=== PATIENT | male | born 1930 | race Caucasian/White ===

== ENCOUNTER → 2017-02-09 | Outpatient (CLI) | payer MEDICARE ==
--- NOTE | 2017-02-09 10:54 | XR ---
EXAMINATION TYPE: XR pelvis AP view DATE OF EXAM: 02/09/2017 10:33 AM CLINICAL HISTORY: pain TECHNIQUE: Single view the pelvis is submitted. FINDINGS: No evidence for fracture, dislocation or bony lesion. Joint spaces are well-preserved. S I joints appear symmetric. IMPRESSION: 1. No acute fracture or dislocation seen. ICD 10 NO FRACTURE, INITIAL EVALUATION
--- NOTE | 2017-02-09 10:56 | XR ---
EXAMINATION TYPE: XR thoracic spine 2V DATE OF EXAM: 02/09/2017 10:33 AM CLINICAL HISTORY: pain TECHNIQUE: Frontal, lateral, and swimmer's view of thoracic spine are obtained. COMPARISON: None. FINDINGS: Thoracic spine show satisfactory alignment without evidence of acute fracture or dislocatio n. There is a curvature noted convex to the right. Vertebral body heights are preserved. Mild degener ative disc space narrowing. Bridging anterior osteophytes may reflect diffuse idiopathic skeletal hyp erostosis or dish. Visualized ribs are unremarkable. IMPRESSION: No acute fracture or dislocation is seen in the thoracic spine. Degenerative change. Kaiden elate for DISH. ICD 10 NO FRACTURE, INITIAL EVALUATION
--- NOTE | 2017-02-09 10:57 | XR ---
EXAMINATION TYPE: XR cervical spine limited DATE OF EXAM: 02/09/2017 10:33 AM CLINICAL HISTORY: pain TECHNIQUE: 3 views of the cervical spine are submitted. COMPARISON: None. FINDINGS: There is satisfactory in alignment without evidence of acute fracture or dislocation. The pre-vertebral soft tissue appears within normal limits. Moderate to severe disc space narrowing. Lar ge anterior bridging osteophytes. Correlate for DISH. The C1-C2 articulation is unremarkable on the o pen mouth view. IMPRESSION: No acute fracture or dislocation is seen in the cervical spine. Degenerative changes as discussed.
== END ==
LOC: RADXRMAIN 09:53
PROVIDERS: ATTEND Chiropractor
DX: M47.814 Spondylosis without myelopathy or radiculopathy, thoracic region (principal); M47.812 Spondylosis without myelopathy or radiculopathy, cervical region; M53.1 Cervicobrachial syndrome
CPT/HCPCS: 72040; 72070; 72170

== ENCOUNTER 2017-06-08 06:23 | Emergency (ER) | payer MEDICARE ==
[2017-06-08] MEDS ORDERED: Acetaminophen-Codeine 300-30mg TAB PO STA (08:09)
[2017-06-08] MEDS ORDERED: KETOROLAC 60 MG/2 ML VIAL IM STA (08:09)
--- NOTE | 2017-06-08 08:21 | ED ---
General Adult HPI - General Chief complaint: Fall Stated complaint: Fall/Rib Pain Time Seen by Provider: 06/08/17 07:13 Source: patient, RN notes reviewed, old records reviewed Mode of arrival: ambulatory Limitations: no limitations - History of Present Illness Initial comments: This is a 86-year-old male to the ER status post fall. Patient a final 3 days ago. No loss of consciousness, not had a left-sided ribs, having left-sided rib pain pain worse with a deep breath worse with movement. No other complaints no other injuries. No improving factors for pain. Has not taken Motrin or Tylenol - Related Data Home Medications Medication Instructions Recorded Confirmed Aspirin [Adult Low Dose Aspirin EC] 81 mg PO DAILY 06/08/17 06/08/17 Glimepiride [Amaryl] 2 mg PO BID 06/08/17 06/08/17 Insulin Detemir [Levemir Flextouch] 8 - 10 units SQ HS 06/08/17 06/08/17 Quinapril HCl 10 mg PO DAILY 06/08/17 06/08/17 Simvastatin [Zocor] 20 mg PO HS 06/08/17 06/08/17 Allergies Allergy/AdvReac Type Severity Reaction Status Date / Time No Known Allergies Allergy Verified 06/08/17 07:40 Review of Systems ROS Statement: Those systems with pertinent positive or pertinent negative responses have been documented in the HPI. ROS Other: All systems not noted in ROS Statement are negative. Past Medical History Past Medical History: Diabetes Mellitus, Hyperlipidemia, Hypertension, Osteoarthritis (OA) History of Any Multi-Drug Resistant Organisms: None Reported Past Surgical History: No Surgical Hx Reported Smoking Status: Current some day smoker Past Alcohol Use History: Occasional Past Drug Use History: None Reported General Exam Limitations: no limitations General appearance: alert, in no apparent distress Head exam: Present: atraumatic, normocephalic, normal inspection Eye exam: Present: normal appearance, PERRL, EOMI. Absent: scleral icterus, conjunctival injection, periorbital swelling ENT exam: Present: normal exam, mucous membranes moist Neck exam: Present: normal inspection. Absent: tenderness, meningismus, lymphadenopathy Respiratory exam: Present: normal lung sounds bilaterally. Absent: respiratory distress, wheezes, rales, rhonchi, stridor Cardiovascular Exam: Present: regular rate, normal rhythm, normal heart sounds. Absent: systolic murmur, diastolic murmur, rubs, gallop, clicks GI/Abdominal exam: Present: soft, normal bowel sounds. Absent: distended, tenderness, guarding, rebound, rigid Extremities exam: Present: normal inspection, full ROM, normal capillary refill. Absent: tenderness, pedal edema, joint swelling, calf tenderness Back exam: Present: normal inspection Neurological exam: Present: alert, oriented X3, CN II-XII intact Psychiatric exam: Present: normal affect, normal mood Skin exam: Present: warm, dry, intact, normal color. Absent: rash Course Vital Signs 06/08/17 06/08/17 06:26 06:44 Temperature 98.3 F Pulse Rate 82 67 Respiratory 18 15 Rate Blood Pressure 189/86 184/88 O2 Sat by Pulse 98 96 Oximetry - Reevaluation(s) Reevaluation #1: 06/08/17 08:19 At this point patient does have pain. Medical Decision Making - Medical Decision Making A 6 now the ER for evaluation of fall, left-sided rib pain and Left esther rib fracture, patient with rib contusion will be given pain control and discharged home - Radiology Data Radiology results: report reviewed (X-ray left ribs and chest negative for pneumothorax positive fracture), image reviewed Disposition Clinical Impression: Fall, Left rib fracture Disposition: HOME SELF-CARE Instructions: Fall Prevention for Older Adults (ED), Rib Contusion (ED) Referrals: Nikolas Singer MD [Primary Care Provider] - 1-2 days
--- NOTE | 2017-06-08 08:21 | XR ---
EXAMINATION TYPE: XR ribs LT w pa chest xray DATE OF EXAM: 06/08/2017 COMPARISON: NONE HISTORY: Pain TECHNIQUE: Single view of the chest 4 views of the ribs are submitted. FINDINGS: At the left medial lung base there is increased density noted which may reflect atelectasis . No Evidence for pneumothorax. No evidence for focal contusion. Mediastinal structures are midline . Evaluation of the ribs demonstrate a vague linear lucency traversing the left ninth rib. Nondispla katt fracture is difficult to exclude. The remaining ribs are intact. Incidental I granulomas within t he left lung. IMPRESSION: 1. I cannot exclude a virtually nondisplaced fracture of the left ninth rib. 2. Suspect left medial basilar atelectasis or parenchymal scar.
[2017-06-08 09:00] VITALS: BP 187/91; PULSE 70; RESP 18; TEMP 97.8
== END 2017-06-08 09:05 | disposition home or self-care (01) ==
LOC: EC 06:23
DX: S22.32XA Fracture of one rib, left side, initial encounter for closed fracture (principal); E78.5 Hyperlipidemia, unspecified; I10 Essential (primary) hypertension; E11.9 Type 2 diabetes mellitus without complications; M19.90 Unspecified osteoarthritis, unspecified site; Z79.4 Long term (current) use of insulin; Z79.82 Long term (current) use of aspirin; Z79.84 Long term (current) use of oral hypoglycemic drugs; Z79.899 Other long term (current) drug therapy; F17.200 Nicotine dependence, unspecified, uncomplicated; W01.10XA Fall on same level from slipping, tripping and stumbling with subsequent striking against unspecified object, initial encounter; Y93.89 Activity, other specified
CPT/HCPCS: 99284; 96372; 71101; J1885

== ENCOUNTER → 2018-08-31 | Outpatient (CLI) | payer MEDICARE ==
--- NOTE | 2018-08-31 10:45 | US ---
EXAMINATION TYPE: US venous doppler duplex LE BI DATE OF EXAM: 08/31/2018 10:41 AM COMPARISON: NONE CLINICAL HISTORY: 87-year-old male R60.0 EDEMA. SIDE PERFORMED: Bilateral TECHNIQUE: The lower extremity deep venous system is examined utilizing real time linear array sonog orestes with graded compression, doppler sonography and color-flow sonography. VESSELS IMAGED: External Iliac Vein (EIV) Common Femoral Vein Deep Femoral Vein Greater Saphenous Vein * Femoral Vein Popliteal Vein Small Saphenous Vein * Proximal Calf Veins (* superficial vessels) Right Leg: Negative for DVT Left Leg: Negative for DVT IMPRESSION: No evidence for DVT within the bilateral lower extremities imaged from the groin to the upper calves.
== END | disposition home or self-care (01) ==
LOC: RADUSWWP 09:19
PROVIDERS: ATTEND Family Medicine
DX: R60.0 Localized edema (principal)
CPT/HCPCS: 93970

== ENCOUNTER 2018-11-08 10:42 | Inpatient (IN) | payer MEDICARE ==
[2018-11-08] MEDS ORDERED: SODIUM CHLORIDE 0.9% 1,000 ML IV ONE ×2 (10:52)
--- NOTE | 2018-11-08 10:58 | ED ---
Altered Mental Status HPI - General Chief Complaint: Altered Mental Status Stated Complaint: Altered Mental Status Time Seen by Provider: 11/08/18 10:51 Source: patient, EMS, RN notes reviewed Mode of arrival: EMS Limitations: altered mental status - History of Present Illness Initial Comments: This 88 also he had a temperature 99.0 on a temporal thermometer. He was warm to touch.-year-old male with a history of type 2 diabetes who was found lying on the floor in the hallway was residence by a neighbor who last seen him about a week ago. Per paramedics the patient was found lying on the floor he thought he was in his garage there is evidence that he been crawling on the floor with feces and urine. The patient that was not slept in. Patient was lying in his own urine-soaked clothing. Confused slow to respond only was able to respond no definite focal deficits he complained of right shoulder pain. He was found lying on his right side. Per paramedics patient is newspaper overall gathered except for one from today. Is unclear and the patient's not sure how he ended up on the floor how long he was there. MD Complaint: altered mental status, decreased responsiveness - Related Data Home Medications Medication Instructions Recorded Confirmed Glimepiride [Amaryl] 2 mg PO BID 06/08/17 11/08/18 Insulin Detemir [Levemir Flextouch] 8 units SQ HS 06/08/17 11/08/18 Quinapril HCl 10 mg PO DAILY 06/08/17 11/08/18 Simvastatin [Zocor] 20 mg PO HS 06/08/17 11/08/18 Allergies Allergy/AdvReac Type Severity Reaction Status Date / Time No Known Allergies Allergy Verified 11/08/18 13:02 Review of Systems ROS Statement: Those systems with pertinent positive or pertinent negative responses have been documented in the HPI. ROS Other: All systems not noted in ROS Statement are negative. Past Medical History Past Medical History: Diabetes Mellitus, Hyperlipidemia, Hypertension, Osteoarthritis (OA) History of Any Multi-Drug Resistant Organisms: None Reported Past Surgical History: No Surgical Hx Reported Smoking Status: Current some day smoker Past Alcohol Use History: Occasional Past Drug Use History: None Reported General Exam - General Exam Comments Initial Comments: This is a well-developed sec appearing male who was awake alert but confused somewhat and lethargic. Limitations: altered mental status General appearance: alert, lethargic Head exam: Present: normocephalic, other (Evidence of pressure changes to the right face right orbital region. No step-off no crepitation) Eye exam: Present: normal appearance, PERRL, EOMI. Absent: scleral icterus, conjunctival injection, periorbital swelling ENT exam: Present: mucous membranes dry Neck exam: Present: normal inspection, full ROM. Absent: tenderness, meningismus Respiratory exam: Present: decreased breath sounds Cardiovascular Exam: Present: regular rate, normal rhythm, normal heart sounds. Absent: systolic murmur, diastolic murmur, rubs, gallop, clicks GI/Abdominal exam: Present: soft, normal bowel sounds. Absent: distended, tenderness, guarding, rebound, rigid Rectal exam: Present: deferred Extremities exam: Present: normal capillary refill, other (Pressures sores stage I noted to the right face as well as slight right elbow and right anterior lateral chest wall. Abrasions noted to the left anterior lateral proximal leg on the left abrasions noted to the dorsal aspect of the second and third toes on the right. No active bleeding no foreign body seen there is some tenderness palpation of the right hip. Tenderness also notes the right shoulder but no step-off or crepitation there is full range of motion demonstrated.) Neurological exam: Present: alert, altered, CN II-XII intact. Absent: motor sensory deficit Psychiatric exam: Present: flat affect Skin exam: Present: warm, dry. Absent: intact, normal color Course Vital Signs 11/08/18 11/08/18 11/08/18 10:45 11:51 12:48 Temperature 97.8 F Pulse Rate 74 72 75 Respiratory 20 18 18 Rate Blood Pressure 130/81 154/79 O2 Sat by Pulse 97 98 98 Oximetry - Reevaluation(s) Reevaluation #1: 11/08/18 13:41 Reevaluation patient reveals some increased mental capacity after IV hydration. Medical Decision Making - Medical Decision Making I did reevaluate patient on multiple occasions his imaging studies show no acute findings. This does demonstrate dehydration and rhabdomyolysis hypo- neutropenia hyperglycemia acute renal insufficiency he will be admitted. No family is available at this time for discussion. I did discuss the case with Dr. bishop - Lab Data Result diagrams: 11/08/18 11:07 11/08/18 11:07 Lab Results 1211/08/18 11/08/18 Range/Units 11:07 11:07 11:07 WBC (3.8-10.6) k/uL RBC (4.30-5.90) m/uL Hgb (13.0-17.5) gm/dL Hct (39.0-53.0) % MCV (80.0-100.0) fL MCH (25.0-35.0) pg MCHC (31.0-37.0) g/dL RDW (11.5-15.5) % Plt Count (150-450) k/uL Neutrophils % % Lymphocytes % % Monocytes % % Eosinophils % % Basophils % % Neutrophils # (1.3-7.7) k/uL Lymphocytes # (1.0-4.8) k/uL Monocytes # (0-1.0) k/uL Eosinophils # (0-0.7) k/uL Basophils # (0-0.2) k/uL PT (9.0-12.0) sec INR (<1.2) APTT (22.0-30.0) sec Sodium 151 H (137-145) mmol/L Potassium 4.8 (3.5-5.1) mmol/L Chloride 116 H (98-107) mmol/L Carbon Dioxide 25 (22-30) mmol/L Anion Gap 10 mmol/L BUN 92 H (9-20) mg/dL Creatinine 1.23 (0.66-1.25) mg/dL Est GFR (CKD-EPI)AfAm 61 (>60 ml/min/1.73 sqM) Est GFR (CKD-EPI)NonAf 52 (>60 ml/min/1.73 sqM) Glucose 306 H (74-99) mg/dL Plasma Lactic Acid Shay 1.8 (0.7-2.0) mmol/L Calcium 9.7 (8.4-10.2) mg/dL Magnesium 2.8 H (1.6-2.3) mg/dL Total Bilirubin 0.6 (0.2-1.3) mg/dL AST 50 (17-59) U/L ALT 77 H (21-72) U/L Alkaline Phosphatase 124 (38-126) U/L Ammonia 13 (<30) umol/L Total Creatine Kinase 950 H (55-170) U/L CK-MB (CK-2) 9.0 H (0.0-2.4) ng/mL CK-MB (CK-2) Rel Index 0.9 Troponin I 0.081 H* (0.000-0.034) ng/mL Total Protein 6.6 (6.3-8.2) g/dL Albumin 3.5 (3.5-5.0) g/dL Amylase 209 H (30-110) U/L Serum Alcohol <10 mg/dL 11/08/18 11/08/18 Range/Units 11:07 11:07 WBC 8.2 (3.8-10.6) k/uL RBC 4.38 (4.30-5.90) m/uL Hgb 12.6 L (13.0-17.5) gm/dL Hct 39.7 (39.0-53.0) % MCV 90.6 (80.0-100.0) fL MCH 28.8 (25.0-35.0) pg MCHC 31.8 (31.0-37.0) g/dL RDW 13.1 (11.5-15.5) % Plt Count 475 H (150-450) k/uL Neutrophils % 84 % Lymphocytes % 7 % Monocytes % 7 % Eosinophils % 1 % Basophils % 0 % Neutrophils # 6.8 (1.3-7.7) k/uL Lymphocytes # 0.6 L (1.0-4.8) k/uL Monocytes # 0.6 (0-1.0) k/uL Eosinophils # 0.1 (0-0.7) k/uL Basophils # 0.0 (0-0.2) k/uL PT 10.2 (9.0-12.0) sec INR 0.9 (<1.2) APTT 19.5 L (22.0-30.0) sec Sodium (137-145) mmol/L Potassium (3.5-5.1) mmol/L Chloride (98-107) mmol/L Carbon Dioxide (22-30) mmol/L Anion Gap mmol/L BUN (9-20) mg/dL Creatinine (0.66-1.25) mg/dL Est GFR (CKD-EPI)AfAm (>60 ml/min/1.73 sqM) Est GFR (CKD-EPI)NonAf (>60 ml/min/1.73 sqM) Glucose (74-99) mg/dL Plasma Lactic Acid Shay (0.7-2.0) mmol/L Calcium (8.4-10.2) mg/dL Magnesium (1.6-2.3) mg/dL Total Bilirubin (0.2-1.3) mg/dL AST (17-59) U/L ALT (21-72) U/L Alkaline Phosphatase (38-126) U/L Ammonia (<30) umol/L Total Creatine Kinase (55-170) U/L CK-MB (CK-2) (0.0-2.4) ng/mL CK-MB (CK-2) Rel Index Troponin I (0.000-0.034) ng/mL Total Protein (6.3-8.2) g/dL Albumin (3.5-5.0) g/dL Amylase (30-110) U/L Serum Alcohol mg/dL - EKG Data -: EKG Interpreted by Me (Sinus rhythm with artifact present left exodeviation LVH prolonged QTs rate) Critical Care Time Critical Care Time: Yes Critical Care Time: 39 minutes of critical care time which includes initial presentation with history physical labs x-rays discussed with paramedics regarding the findings also reevaluation the patient discussed with the admitting physician admission orders and documentation the above Disposition Clinical Impression: Delirium due to general medical condition, Altered mental status, Rhabdomyolysis, Dehydration, Renal insufficiency, Elevated troponin, Hyperglycemia Disposition: ADMITTED IP TO THIS [facility] Condition: Serious Referrals: Nikolas Singer MD [Primary Care Provider] - 1-2 days
[2018-11-08 11:27] LABS: Basophils % (A) 0 %; Eosinophils # (A) 0.1 k/uL (0-0.7); Eosinophils % (A) 1 %; HCT 39.7 % (39.0-53.0); HGB 12.6 gm/dL (13.0-17.5); Lymphocytes # (A) 0.6 k/uL (1.0-4.8); Lymphocytes % (A) 7 %; MCH 28.8 pg (25.0-35.0); MCHC 31.8 g/dL (31.0-37.0); MCV 90.6 fL (80.0-100.0); Mean Platelet Volume 7.1; Monocytes # (A) 0.6 k/uL (0-1.0); Monocytes % (A) 7 %; Neutrophils # (A) 6.8 k/uL (1.3-7.7); Neutrophils % (A) 84 %; Platelet Count 475 k/uL (150-450); RBC 4.38 m/uL (4.30-5.90); RDW 13.1 % (11.5-15.5); WBC 8.2 k/uL (3.8-10.6)
--- NOTE | 2018-11-08 11:32 | CT ---
EXAMINATION TYPE: CT brain wo con DATE OF EXAM: 11/08/2018 COMPARISON: None HISTORY: Altered mental status CT DLP: 1113.[address] of the brain was performed. The ventricles, basal cisterns and sulci overlying the cerebral convexities demonstrate mild enlargem ent. There is no evidence for intracranial hemorrhage or sulcal effacement. There is decreased attenuation about the periventricular white matter and deep white matter of both c erebral hemispheres, compatible with chronic small vessel ischemia. Differential diagnosis does inclu de demyelination. No mass effects are seen.No midline shift. Osseous calvarium is intact. If symptoms persist consider MRI. IMPRESSION: 1. Age related atrophic and chronic small vessel ischemic change without acute intracranial process s een at this time.
[2018-11-08 11:36] LABS: Lactic Acid, Venous 1.8 mmol/L (0.7-2.0)
[2018-11-08 11:37] LABS: ALT 77 U/L (21-72); AST 50 U/L (17-59); Albumin 3.5 g/dL (3.5-5.0); Alcohol <10 mg/dL; Alkaline Phosphatase 124 U/L (38-126); Amylase 209 U/L (30-110); Anion Gap 10 mmol/L; Blood Urea Nitrogen 92 mg/dL (9-20); Calcium 9.7 mg/dL (8.4-10.2); Carbon Dioxide 25 mmol/L (22-30); Chloride 116 mmol/L (98-107); Glucose 306 mg/dL (74-99); Magnesium 2.8 mg/dL (1.6-2.3); Potassium 4.8 mmol/L (3.5-5.1); Sodium 151 mmol/L (137-145); Total Bilirubin 0.6 mg/dL (0.2-1.3); Total Protein 6.6 g/dL (6.3-8.2)
[2018-11-08 11:43] LABS: INR 0.9 (<1.2); Prothrombin Time 10.2 sec (9.0-12.0)
[2018-11-08 11:47] LABS: Partial Thromboplastin Time 19.5 sec (22.0-30.0)
--- NOTE | 2018-11-08 12:03 | XR ---
EXAMINATION TYPE: XR chest 1V portable DATE OF EXAM: 11/08/2018 COMPARISON: Prior chest x-ray 06/08/2017 HISTORY: Altered mental status, found down TECHNIQUE: Single frontal view of the chest is obtained. FINDINGS: Patient is rotated. There are overlying cardiac leads. No evident pneumothorax or pleural effusion. Aorta is dense. Heart size is likely stable. Calcified granuloma present in the left lobe. Degenerative disc changes in the visualized spine. IMPRESSION: Rotated exam. No acute abnormality evident. Follow-up as indicated.
--- NOTE | 2018-11-08 12:05 | XR ---
AP pelvis HISTORY: Altered mental status, found down Single frontal view of the pelvis is submitted and correlated prior pelvis 02/09/2017 Bone mineralization is reduced which may limit sensitivity. Vascular calcifications are again seen. A lignment and joint spaces are maintained. Degenerative disc changes in the visualized spine. IMPRESSION: No fracture or dislocation evident, follow-up as indicated.
--- NOTE | 2018-11-08 12:06 | XR ---
EXAMINATION TYPE: XR shoulder limited RT DATE OF EXAM: 11/08/2018 CLINICAL HISTORY: Altered mental status and weakness. TECHNIQUE: 2 views of the right shoulder are obtained. COMPARISON: None. FINDINGS: There is no acute fracture/dislocation evident in the right shoulder. Moderate to severe n arrowing with moderate spurring at acromioclavicular joint is present. Distal acromion morphology is unremarkable. Glenohumeral joint is maintained. The visualized ribs are intact and unremarkable. IMPRESSION: There is no acute fracture or dislocation in the right shoulder.
[2018-11-08 12:08] LABS: Troponin I 0.081 ng/mL (0.000-0.034)
[2018-11-08] MEDS ORDERED: NALOXONE 0.4 MG/ML 1 ML VIAL IV PRN (13:45)
[2018-11-08] MEDS ORDERED: SODIUM CHLORIDE 0.9% 1,000 ML IV SCH (13:45)
[2018-11-08] MEDS ORDERED: INSULIN REGULAR 100 UNIT/ML VIAL IV ONE (13:50)
[2018-11-08 14:51] LABS: Glucose,Whole Blood 342 mg/dL (75-99)
[2018-11-08 16:25] LABS: Glucose,Whole Blood 234 mg/dL (75-99)
[2018-11-08 16:27] VITALS: BMI 25.2
[2018-11-08 16:59] LABS: Appearance,Urine Clear (Clear); Bilirubin,Urine Negative (Negative); Blood,Urine Negative (Negative); Color,Urine Yellow; Glucose,Urine (UA) 1+ (Negative); Ketones,Urine 1+ (Negative); Leukocyte Esterase,Urine Negative (Negative); Nitrite,Urine Negative (Negative); Protein,Urine Trace (Negative); Specific Gravity,Urine 1.017 (1.001-1.035); Urobilinogen,Urine <2.0 mg/dL (<2.0)
[2018-11-08 17:09] LABS: Amphetamine Screen,Urine Not Detected (NotDetected); Barbiturate Screen,Urine Not Detected (NotDetected); Benzodiazepines Screen,Urine Not Detected (NotDetected); Cocaine Screen,Urine Not Detected (NotDetected); Methadone Screen, Urine Not Detected (NotDetected); Opiate Screen,Urine Not Detected (NotDetected); Oxycodone Screen, Urine Not Detected (NotDetected); Phencyclidine Screen,Urine Not Detected (NotDetected); Tricyclic Antidepressant,Urine Not Detected (NotDetected); Urn Cannabinoid Scrn Not Detected (NotDetected)
[2018-11-08] MEDS: INSULIN ASPART 100 UNIT/ML 1 ML 10 ML VIAL SQ SCH ×2 (17:53→20:57)
[2018-11-08] MEDS: SODIUM CHLORIDE 0.45% 1,000 ML IV SCH (17:54)
--- NOTE | 2018-11-08 18:19 | P.HPIM ---
History of Present Illness Patient is a very pleasant 88-year-old gentleman was found on the floor patient is unsure how he fell on the floor and patient was brought in here by the neighbor. Lives by himself. Patient denied any dysuria patient the has been on floor on with feces and urine on the floor. When I evaluated the patient patient is quite lethargic and the encephalopathic with some myoclonic activity and tremors. No seizure-like activity at this time. Patient had a CAT scan of the head which showed chronic changes chronic atrophic changes. Patient also is able to tell me the date. Patient denied any cough chest x-ray did not show any pneumonic process is not impressive patient is quite a bit dehydrated with hyponatremia, hyper kalemia and renal failure no other signs or symptoms of sepsis was appreciated. Patient blood sugars are bit elevated. Review of Systems REVIEW OF SYSTEMS: CONSTITUTIONAL: As mentioned in HPI HEENT: No recent visual problems or hearing problems. Denied any sore throat. CARDIOVASCULAR: No chest pain, orthopnea, PND, no palpitations, no syncope. PULMONARY: No shortness of breath, no cough, no hemoptysis. GASTROINTESTINAL: No diarrhea, no nausea, no vomiting, no abdominal pain. NEUROLOGICAL: No headaches, no weakness, no numbness. HEMATOLOGICAL: Denies any bleeding or petechiae. GENITOURINARY: Denies any burning micturition, frequency, or urgency. MUSCULOSKELETAL/RHEUMATOLOGICAL: Denies any joint pain, swelling, or any muscle pain. ENDOCRINE: Denies any polyuria or polydipsia. The rest of the 14-point review of systems is negative. Past Medical History Past Medical History: Diabetes Mellitus, Hyperlipidemia, Hypertension, Osteoarthritis (OA) History of Any Multi-Drug Resistant Organisms: None Reported Past Surgical History: No Surgical Hx Reported Smoking Status: Current some day smoker Past Alcohol Use History: Occasional Past Drug Use History: None Reported Medications and Allergies Home Medications Medication Instructions Recorded Confirmed Type Glimepiride [Amaryl] 2 mg PO BID 06/08/17 11/08/18 History Insulin Detemir [Levemir Flextouch] 8 units SQ HS 06/08/17 11/08/18 History Quinapril HCl 10 mg PO DAILY 06/08/17 11/08/18 History Simvastatin [Zocor] 20 mg PO HS 06/08/17 11/08/18 History Allergies Allergy/AdvReac Type Severity Reaction Status Date / Time No Known Allergies Allergy Verified 11/08/18 13:02 Physical Exam Vitals: Vital Signs Temp Pulse Resp BP Pulse Ox 11/08/18 15:00 91 20 146/65 97 11/08/18 14:00 82 19 154/79 97 11/08/18 13:00 92 20 151/78 98 11/08/18 12:48 75 18 98 11/08/18 12:44 82 18 97 11/08/18 11:51 72 18 154/79 98 11/08/18 10:45 97.8 F 74 20 130/81 97 Intake and Output 11/08/18 11/08/18 11/08/18 06:59 14:59 22:59 Other: Weight 84.368 kg 84.368 kg PHYSICAL EXAMINATION: GENERAL: The patient is alert and oriented x3, not in any acute distress. Thin built patient has some myoclonic tremors HEENT: Pupils are round and equally reacting to light. EOMI. No scleral icterus. No conjunctival pallor. Normocephalic, atraumatic. No pharyngeal erythema. No thyromegaly. Fasting and eyes CARDIOVASCULAR: S1 and S2 present. No murmurs, rubs, or gallops. PULMONARY: Chest is clear to auscultation, no wheezing or crackles. ABDOMEN: Soft, nontender, nondistended, normoactive bowel sounds. No palpable organomegaly. MUSCULOSKELETAL: No joint swelling or deformity. EXTREMITIES: No cyanosis, clubbing, or pedal edema. NEUROLOGICAL: Gross neurological examination did not reveal any focal deficits. SKIN: Appears to be dehydrated Results CBC & Chem 7: 11/08/18 11:07 11/08/18 11:07 Labs: Abnormal Lab Results - Last 24 Hours (Table) 11/08/18 11/08/18 11/08/18 Range/Units 11:07 11:07 11:07 Hgb 12.6 L (13.0-17.5) gm/dL Plt Count 475 H (150-450) k/uL Lymphocytes # 0.6 L (1.0-4.8) k/uL APTT (22.0-30.0) sec Sodium 151 H (137-145) mmol/L Chloride 116 H (98-107) mmol/L BUN 92 H (9-20) mg/dL Glucose 306 H (74-99) mg/dL POC Glucose (mg/dL) (75-99) mg/dL Magnesium 2.8 H (1.6-2.3) mg/dL ALT 77 H (21-72) U/L Total Creatine Kinase 950 H (55-170) U/L CK-MB (CK-2) 9.0 H (0.0-2.4) ng/mL Troponin I 0.081 H* (0.000-0.034) ng/mL Amylase 209 H (30-110) U/L Urine Protein (Negative) Urine Glucose (UA) (Negative) Urine Ketones (Negative) 11/08/18 11/08/18 11/08/18 Range/Units 11:07 14:43 16:23 Hgb (13.0-17.5) gm/dL Plt Count (150-450) k/uL Lymphocytes # (1.0-4.8) k/uL APTT 19.5 L (22.0-30.0) sec Sodium (137-145) mmol/L Chloride (98-107) mmol/L BUN (9-20) mg/dL Glucose (74-99) mg/dL POC Glucose (mg/dL) 342 H 234 H (75-99) mg/dL Magnesium (1.6-2.3) mg/dL ALT (21-72) U/L Total Creatine Kinase (55-170) U/L CK-MB (CK-2) (0.0-2.4) ng/mL Troponin I (0.000-0.034) ng/mL Amylase (30-110) U/L Urine Protein (Negative) Urine Glucose (UA) (Negative) Urine Ketones (Negative) 11/08/18 Range/Units 16:40 Hgb (13.0-17.5) gm/dL Plt Count (150-450) k/uL Lymphocytes # (1.0-4.8) k/uL APTT (22.0-30.0) sec Sodium (137-145) mmol/L Chloride (98-107) mmol/L BUN (9-20) mg/dL Glucose (74-99) mg/dL POC Glucose (mg/dL) (75-99) mg/dL Magnesium (1.6-2.3) mg/dL ALT (21-72) U/L Total Creatine Kinase (55-170) U/L CK-MB (CK-2) (0.0-2.4) ng/mL Troponin I (0.000-0.034) ng/mL Amylase (30-110) U/L Urine Protein Trace H (Negative) Urine Glucose (UA) 1+ H (Negative) Urine Ketones 1+ H (Negative) Thrombosis Risk Factor Assmnt - Choose All That Apply Any of the Below Risk Factors Present?: Yes Other Risk Factors: Yes Other congenital or acquired thrombophilia - If yes, enter type in comment: Yes Assessment and Plan Plan: -Encephalopathy patient has metabolic encephalopathy from severe dehydration: IV normal saline will be discussed in your patient will restart on half-normal saline because of hypochloremia and hyponatremia repeat Avapro lites tomorrow. -Severe dehydration intravascular depletion leading to acute renal failure which is prerenal azotemia IV fluids as mentioned above -Hyperchloremia and hypovolemic hypernatremia will continue with IV fluids as mentioned above -Mildly elevated troponins due to acute renal failure patient denied any chest pain EKG showed nonspecific ST-T wave changes cardiology will be consulted to repeat 2 more sets of troponins. 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
[2018-11-08 20:41] LABS: Glucose,Whole Blood 231 mg/dL (75-99)
[2018-11-08] MEDS: ATORVASTATIN 10 MG TAB PO SCH (20:57)
[2018-11-08] MEDS: FAMOTIDINE 20 MG TAB PO SCH (20:57)
[2018-11-08] MEDS ORDERED: GLIMEPIRIDE 2 MG TAB PO SCH (21:00)
[2018-11-08] MEDS: HEPARIN SODIUM,PORCINE 5,000 UNIT/ML 1 ML VIAL SQ SCH (21:05)
[2018-11-08] MEDS: INSULIN DETEMIR 100 UNIT/ML 10 ML VIAL SQ SCH (23:16)
[2018-11-09] MEDS: SODIUM CHLORIDE 0.45% 1,000 ML IV SCH ×2 (05:58→12:26)
[2018-11-09 06:24] LABS: Glucose,Whole Blood 164 mg/dL (75-99)
[2018-11-09] MEDS: INSULIN ASPART 100 UNIT/ML 1 ML 10 ML VIAL SQ SCH ×4 (06:33→22:30)
[2018-11-09 07:03] LABS: HGB 11.6 gm/dL (13.0-17.5); Hypochromasia Slight; MCH 29.4 pg (25.0-35.0); MCHC 32.3 g/dL (31.0-37.0); MCV 91.2 fL (80.0-100.0); Mean Platelet Volume 7.6; Platelet Count 350 k/uL (150-450); RBC 3.94 m/uL (4.30-5.90); RDW 13.3 % (11.5-15.5); WBC 5.3 k/uL (3.8-10.6)
[2018-11-09 07:18] LABS: Calcium 9.1 mg/dL (8.4-10.2); Magnesium 2.7 mg/dL (1.6-2.3); Potassium 4.1 mmol/L (3.5-5.1)
[2018-11-09] MEDS ORDERED: LISINOPRIL 10 MG TAB PO SCH (09:00)
[2018-11-09] MEDS: FAMOTIDINE 20 MG TAB PO SCH ×2 (09:05→22:30)
[2018-11-09] MEDS: HEPARIN SODIUM,PORCINE 5,000 UNIT/ML 1 ML VIAL SQ SCH ×2 (09:05→22:30)
[2018-11-09] MEDS: amLODIPine 5 MG TAB PO SCH (09:05)
--- NOTE | 2018-11-09 10:52 | P.PN ---
Subjective 82-year-old gentleman was admitted after he was found on the floor and altered mental status secondary to severe intravascular volume depletion dehydration. Patient looks much better much more awake today patient doesn't have any more tremor and myoclonic activity probably his encephalopathy is better, his creatinine did improve and is 1.02 now. Constitutional: Still bit fatigued mental status at his baseline Cardio vascular: denied any chest pain, palpitations Gastrointestinal denied any nausea vomiting Pulmonary: Denied any shortness of breath cough Neurologic denied any new focal deficits All inpatient medications were reviewed and appropriate changes in these medications as dictated in the interval history and assessment and plan. Objective - Vital Signs Vital signs: Vital Signs Temp 98.2 F 11/09/18 08:00 Pulse 77 11/09/18 08:00 Resp 20 11/09/18 08:00 BP 180/80 11/09/18 08:00 Pulse Ox 98 11/09/18 08:00 Intake & Output 11/08/18 11/09/18 11/09/18 18:59 06:59 18:59 Intake Total 720 480 Output Total 100 350 Balance 620 480 -350 Weight 84.368 kg 83 kg Intake: Oral 720 480 Output: Urine 100 350 Other: Voiding Method Diaper Diaper # Voids 1 1 - Exam PHYSICAL EXAMINATION: GENERAL: The patient is alert and oriented x3, not in any acute distress. HEENT: Pupils are round and equally reacting to light. EOMI. No scleral icterus. No conjunctival pallor. Normocephalic, atraumatic. No pharyngeal erythema. No thyromegaly. CARDIOVASCULAR: S1 and S2 present. No murmurs, rubs, or gallops. PULMONARY: Chest is clear to auscultation, no wheezing or crackles. ABDOMEN: Soft, nontender, nondistended, normoactive bowel sounds. No palpable organomegaly. MUSCULOSKELETAL: No joint swelling or deformity. EXTREMITIES: No cyanosis, clubbing, or pedal edema. NEUROLOGICAL: Gross neurological examination did not reveal any focal deficits. SKIN: Appears to be dehydrated - Labs CBC & Chem 7: 11/09/18 06:05 11/09/18 06:05 Labs: Abnormal Lab Results - Last 24 Hours (Table) 11/08/18 11/08/18 11/08/18 Range/Units 11:07 11:07 11:07 RBC (4.30-5.90) m/uL Hgb 12.6 L (13.0-17.5) gm/dL Hct (39.0-53.0) % Plt Count 475 H (150-450) k/uL Lymphocytes # 0.6 L (1.0-4.8) k/uL APTT (22.0-30.0) sec Sodium 151 H (137-145) mmol/L Chloride 116 H (98-107) mmol/L BUN 92 H (9-20) mg/dL Glucose 306 H (74-99) mg/dL POC Glucose (mg/dL) (75-99) mg/dL Magnesium 2.8 H (1.6-2.3) mg/dL ALT 77 H (21-72) U/L Total Creatine Kinase 950 H (55-170) U/L CK-MB (CK-2) 9.0 H (0.0-2.4) ng/mL Troponin I 0.081 H* (0.000-0.034) ng/mL Amylase 209 H (30-110) U/L Urine Protein (Negative) Urine Glucose (UA) (Negative) Urine Ketones (Negative) 11/08/18 11/08/18 11/08/18 Range/Units 11:07 14:43 16:23 RBC (4.30-5.90) m/uL Hgb (13.0-17.5) gm/dL Hct (39.0-53.0) % Plt Count (150-450) k/uL Lymphocytes # (1.0-4.8) k/uL APTT 19.5 L (22.0-30.0) sec Sodium (137-145) mmol/L Chloride (98-107) mmol/L BUN (9-20) mg/dL Glucose (74-99) mg/dL POC Glucose (mg/dL) 342 H 234 H (75-99) mg/dL Magnesium (1.6-2.3) mg/dL ALT (21-72) U/L Total Creatine Kinase (55-170) U/L CK-MB (CK-2) (0.0-2.4) ng/mL Troponin I (0.000-0.034) ng/mL Amylase (30-110) U/L Urine Protein (Negative) Urine Glucose (UA) (Negative) Urine Ketones (Negative) 11/08/18 11/08/18 11/08/18 Range/Units 16:40 17:58 20:40 RBC (4.30-5.90) m/uL Hgb (13.0-17.5) gm/dL Hct (39.0-53.0) % Plt Count (150-450) k/uL Lymphocytes # (1.0-4.8) k/uL APTT (22.0-30.0) sec Sodium (137-145) mmol/L Chloride (98-107) mmol/L BUN (9-20) mg/dL Glucose (74-99) mg/dL POC Glucose (mg/dL) 231 H (75-99) mg/dL Magnesium (1.6-2.3) mg/dL ALT (21-72) U/L Total Creatine Kinase (55-170) U/L CK-MB (CK-2) (0.0-2.4) ng/mL Troponin I 0.069 H* (0.000-0.034) ng/mL Amylase (30-110) U/L Urine Protein Trace H (Negative) Urine Glucose (UA) 1+ H (Negative) Urine Ketones 1+ H (Negative) 11/08/18 11/09/18 11/09/18 Range/Units 23:00 06:05 06:05 RBC 3.94 L (4.30-5.90) m/uL Hgb 11.6 L (13.0-17.5) gm/dL Hct 36.0 L (39.0-53.0) % Plt Count (150-450) k/uL Lymphocytes # (1.0-4.8) k/uL APTT (22.0-30.0) sec Sodium 151 H (137-145) mmol/L Chloride 119 H (98-107) mmol/L BUN 66 H (9-20) mg/dL Glucose 165 H (74-99) mg/dL POC Glucose (mg/dL) (75-99) mg/dL Magnesium 2.7 H (1.6-2.3) mg/dL ALT (21-72) U/L Total Creatine Kinase (55-170) U/L CK-MB (CK-2) (0.0-2.4) ng/mL Troponin I 0.077 H* (0.000-0.034) ng/mL Amylase (30-110) U/L Urine Protein (Negative) Urine Glucose (UA) (Negative) Urine Ketones (Negative) 11/09/18 Range/Units 06:23 RBC (4.30-5.90) m/uL Hgb (13.0-17.5) gm/dL Hct (39.0-53.0) % Plt Count (150-450) k/uL Lymphocytes # (1.0-4.8) k/uL APTT (22.0-30.0) sec Sodium (137-145) mmol/L Chloride (98-107) mmol/L BUN (9-20) mg/dL Glucose (74-99) mg/dL POC Glucose (mg/dL) 164 H (75-99) mg/dL Magnesium (1.6-2.3) mg/dL ALT (21-72) U/L Total Creatine Kinase (55-170) U/L CK-MB (CK-2) (0.0-2.4) ng/mL Troponin I (0.000-0.034) ng/mL Amylase (30-110) U/L Urine Protein (Negative) Urine Glucose (UA) (Negative) Urine Ketones (Negative) Microbiology - Last 24 Hours (Table) 11/08/18 16:40 Urine Culture - Preliminary Urine,Voided Assessment and Plan Plan: -Encephalopathy patient has metabolic encephalopathy from severe dehydration: IV normal saline will be discussed in your patient will restart on half-normal saline because of hypochloremia and hyponatremia , improved serum creatinine continues to have hyponatremia and hypochloremia expected to improve can you with half-normal saline. Encephalopathy significantly improved, patient may need placement physical therapy and occupational therapy evaluation -Severe dehydration intravascular depletion leading to acute renal failure which is prerenal azotemia IV fluids as mentioned above -Hyperchloremia and hypovolemic hypernatremia will continue with IV fluids as mentioned above -Mildly elevated troponins due to acute renal failure patient denied any chest pain EKG showed nonspecific ST-T wave changes cardiology was consulted repeat troponins remained at the same level -non-Specific elevation of amylase and lipase -Hypertension hold off ROHINI inhibitor because of acute renal failure, patient was started on amlodipine because of hypertension -Type 2 diabetes mellitus elevated blood sugars continue with her lack his Lantus sliding scale insulin patient has uncontrolled blood sugars will hold off on oral hypoglycemic agents at this time -Possible moderate vascular dementia CODE STATUS discussed with the patient at length he cannot make in addition at this time as per the nursing staff son who visited him earlier wanted him to be full code.
[2018-11-09 11:07] LABS: Glucose,Whole Blood 158 mg/dL (75-99)
[2018-11-09] MEDS: METOPROLOL SUCCINATE (ER) 50 MG TAB.ER.24H PO SCH (12:22)
--- NOTE | 2018-11-09 12:54 | P.CRDCN ---
History of Present Illness History of present illness: This is Dr. Medel dictating a consult on this patient The patient was interviewed and examined by me IMPRESSION / ASSESSMENT: Possible paroxysmal SVT resulting in a fall but other factors and other causes must be investigated Hypertension, blood pressure elevated Diabetes type 2 on insulin Dehydrated BUN elevated Dyslipidemia on atorvastatin PLAN: Start metoprolol or any AV node blocking drug 2-D echo and Doppler study All other cardiac medications HPI Patient unable to describe his symptoms. Denies chest discomfort shortness of breath. Does state that he has some palpitations or fluttering of the chest but mostly says he gets this nervous feeling in the chest not of the head but he can't describe it any further He also states that he fell but is not sure if he actually lost consciousness although he doesn't think so. He cannot exactly describe why he fell Apparently he was found on the floor by his neighbor. He was confused slow to respond no focal deficits and covered with fecal material and urine ROS: no fever chills or rigors, no cough, phlegm or expectoration, no nausea, vomiting or diarrhea, no hematuria, dysuria, no musculoskeletal complaints, no strokes or seizures, no skin lesions. EXAMINATION Afebrile, pulse rate in the 60s and 70s, blood pressure 177/77 mmHg 180/80 mmHg Breath sounds are reduced bilaterally but no rhonchi no crackles Heart sounds S1 and S2 soft murmur gallop or rub Abdomen soft nontender External days warm no edema REVIEW OF LABS, ECG Hemoglobin 11.6 white count normal sodium 151, potassium 4.1, BUN 66, creatinine 1.02, permanent 0.08, TSH normal, glucose elevated Serial troponins show that troponins are borderline elevated at 0.08 0.07 and 0.08, fairly flat trend Twelve-lead ECG shows baseline artifact but definitely sinus without any definite ST segment abnormalities Limitations strips show 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 beats a minute paroxysmal, long nonsustained episodes Past Medical History Past Medical History: Diabetes Mellitus, Hyperlipidemia, Hypertension, Osteoarthritis (OA) History of Any Multi-Drug Resistant Organisms: None Reported Past Surgical History: No Surgical Hx Reported Smoking Status: Current some day smoker Past Alcohol Use History: Occasional Past Drug Use History: None Reported Medications and Allergies Home Medications Medication Instructions Recorded Confirmed Type Glimepiride [Amaryl] 2 mg PO BID 06/08/17 11/08/18 History Insulin Detemir [Levemir Flextouch] 8 units SQ HS 06/08/17 11/08/18 History Quinapril HCl 10 mg PO DAILY 06/08/17 11/08/18 History Simvastatin [Zocor] 20 mg PO HS 06/08/17 11/08/18 History Allergies Allergy/AdvReac Type Severity Reaction Status Date / Time No Known Allergies Allergy Verified 11/08/18 13:02 Physical Exam Vitals: Vital Signs Temp Pulse Pulse Resp BP BP Pulse Ox 11/09/18 12:00 97.8 F 63 20 177/77 97 11/09/18 08:00 98.2 F 77 20 180/80 98 11/09/18 04:00 98.1 F 76 17 177/81 11/09/18 00:00 87 18 174/79 11/08/18 20:00 97.4 F L 91 18 135/81 95 11/08/18 16:00 97.4 F L 88 18 166/86 96 11/08/18 15:00 91 20 146/65 97 11/08/18 14:00 82 19 154/79 97 11/08/18 13:00 92 20 151/78 98 Intake and Output 11/08/18 11/09/18 11/09/18 22:59 06:59 14:59 Intake Total 720 480 Output Total 100 500 Balance 620 480 -500 Intake: Oral 720 480 Output: Urine 100 500 Other: Voiding Method Diaper Diaper Diaper # Voids 1 2 Weight 84.368 kg 83 kg Results 11/09/18 06:05 11/09/18 06:05 Cardiac Enzymes 11/08/18 11/08/18 Range/Units 17:58 23:00 Troponin I 0.069 H* 0.077 H* (0.000-0.034) ng/mL CBC 11/09/18 Range/Units 06:05 WBC 5.3 (3.8-10.6) k/uL RBC 3.94 L (4.30-5.90) m/uL Hgb 11.6 L (13.0-17.5) gm/dL Hct 36.0 L (39.0-53.0) % Plt Count 350 (150-450) k/uL Comprehensive Metabolic Panel 11/09/18 Range/Units 06:05 Sodium 151 H (137-145) mmol/L Potassium 4.1 (3.5-5.1) mmol/L Chloride 119 H (98-107) mmol/L Carbon Dioxide 26 (22-30) mmol/L BUN 66 H (9-20) mg/dL Creatinine 1.02 (0.66-1.25) mg/dL Glucose 165 H (74-99) mg/dL Calcium 9.1 (8.4-10.2) mg/dL Current Medications Generic Name Dose Route Start Last Admin Trade Name Freq PRN Reason Stop Dose Admin Amlodipine Besylate 5 mg 11/09/18 09:00 11/09/18 09:05 Norvasc PO 5 mg DAILY JONAH Administration Atorvastatin Calcium 10 mg 11/08/18 21:00 11/08/18 20:57 Lipitor PO 10 mg HS JONAH Administration Famotidine 20 mg 11/08/18 21:00 11/09/18 09:05 Pepcid PO 20 mg BID JONAH Administration Heparin Sodium (Porcine) 5,000 unit 11/08/18 21:00 11/09/18 09:05 Heparin SQ 5,000 unit Q12HR JONAH Administration Sodium Chloride 1,000 mls @ 100 mls/hr 11/08/18 17:45 11/09/18 12:26 Saline 0.45% IV 100 mls/hr .Q10H JONAH Administration Insulin Aspart 0 unit 11/08/18 17:30 11/09/18 12:22 Novolog SQ 1 unit ACHS JONAH Administration Protocol Insulin Detemir 8 unit 11/08/18 21:00 11/08/18 23:16 Levemir SQ 8 unit HS JONAH Administration Metoprolol Succinate 50 mg 11/09/18 09:30 11/09/18 12:22 Toprol Xl PO 50 mg DAILY JONAH Administration Naloxone HCl 0.2 mg 11/08/18 13:45 Narcan IV Q2M PRN Opioid Reversal Intake and Output 11/08/18 11/09/18 11/09/18 22:59 06:59 14:59 Intake Total 720 480 Output Total 100 500 Balance 620 480 -500 Intake: Oral 720 480 Output: Urine 100 500 Other: Voiding Method Diaper Diaper Diaper # Voids 1 2 Weight 84.368 kg 83 kg 11/09/18 06:05 11/09/18 06:05
[2018-11-09 16:15] LABS: Glucose,Whole Blood 221 mg/dL (75-99)
[2018-11-09 20:45] LABS: Glucose,Whole Blood 232 mg/dL (75-99)
[2018-11-09] MEDS: ATORVASTATIN 10 MG TAB PO SCH (22:29)
[2018-11-09] MEDS: INSULIN DETEMIR 100 UNIT/ML 10 ML VIAL SQ SCH (23:19)
[2018-11-10] MEDS: SODIUM CHLORIDE 0.45% 1,000 ML IV SCH ×3 (06:15→20:43)
[2018-11-10 07:11] LABS: Glucose,Whole Blood 102 mg/dL (75-99)
[2018-11-10] MEDS: INSULIN ASPART 100 UNIT/ML 1 ML 10 ML VIAL SQ SCH ×4 (07:37→20:43)
[2018-11-10] MEDS: METOPROLOL SUCCINATE (ER) 50 MG TAB.ER.24H PO SCH (07:44)
[2018-11-10] MEDS: HEPARIN SODIUM,PORCINE 5,000 UNIT/ML 1 ML VIAL SQ SCH ×2 (07:44→20:43)
[2018-11-10] MEDS: FAMOTIDINE 20 MG TAB PO SCH ×2 (07:44→20:43)
[2018-11-10] MEDS: amLODIPine 5 MG TAB PO SCH (07:44)
[2018-11-10 08:09] LABS: Potassium 4.3 mmol/L (3.5-5.1)
[2018-11-10 11:20] LABS: Glucose,Whole Blood 180 mg/dL (75-99)
--- NOTE | 2018-11-10 16:10 | P.PN ---
Subjective 82-year-old gentleman was admitted after he was found on the floor and altered mental status secondary to severe intravascular volume depletion dehydration. Patient looks much better much more awake today patient doesn't have any more tremor and myoclonic activity probably his encephalopathy is better, his creatinine did improve and is 1.02 now. 11/10/2018 Patient overall is clinically doing well much more awake patient will require subacute rehabilitation probably will happen Tuesday. Patient is on IV fluids 0.45% saline probably can be discrete tomorrow patient has diabetes mellitus because of which angiotensin receptor melissa is more appropriate for hypertension. Patient will be started on losartan as there is improvement in his creatinine and probably 1.01 is his baseline. If his creatinine remains stable losartan dose can be increased and discontinue amlodipine at the time patient appeared to have supraventricular tachycardia as per cardiology because of which patient is on beta melissa which is being continued. Constitutional: Still bit fatigued mental status at his baseline Cardio vascular: denied any chest pain, palpitations Gastrointestinal denied any nausea vomiting Pulmonary: Denied any shortness of breath cough Neurologic denied any new focal deficits All inpatient medications were reviewed and appropriate changes in these medications as dictated in the interval history and assessment and plan. Objective - Vital Signs Vital signs: Vital Signs Temp 97.3 F L 11/10/18 06:17 Pulse 64 11/10/18 06:17 Resp 18 11/10/18 06:17 BP 189/83 11/10/18 06:17 Pulse Ox 97 11/10/18 07:45 Intake & Output 11/09/18 11/10/18 11/10/18 18:59 06:59 18:59 Intake Total 1320 Output Total 500 200 Balance 820 -200 Weight 84 kg Intake: Intake, IV Titration 800 Amount Sodium Chloride 0.45% 1, 800 000 ml @ 100 mls/hr IV . Q10H [facility] Rx#:[id number] Oral 520 Output: Urine 500 200 Other: Voiding Method Diaper Diaper Diaper # Voids 2 3 - Exam PHYSICAL EXAMINATION: GENERAL: The patient is alert and oriented x3, not in any acute distress. HEENT: Pupils are round and equally reacting to light. EOMI. No scleral icterus. No conjunctival pallor. Normocephalic, atraumatic. No pharyngeal erythema. No thyromegaly. CARDIOVASCULAR: S1 and S2 present. No murmurs, rubs, or gallops. PULMONARY: Chest is clear to auscultation, no wheezing or crackles. ABDOMEN: Soft, nontender, nondistended, normoactive bowel sounds. No palpable organomegaly. MUSCULOSKELETAL: No joint swelling or deformity. EXTREMITIES: No cyanosis, clubbing, or pedal edema. NEUROLOGICAL: Gross neurological examination did not reveal any focal deficits. SKIN: Appears to be dehydrated - Labs CBC & Chem 7: 11/09/18 06:05 11/10/18 07:30 Labs: Abnormal Lab Results - Last 24 Hours (Table) 11/09/18 11/09/18 11/10/18 Range/Units 16:14 20:44 06:58 Chloride (98-107) mmol/L Carbon Dioxide (22-30) mmol/L BUN (9-20) mg/dL Glucose (74-99) mg/dL POC Glucose (mg/dL) 221 H 232 H 102 H (75-99) mg/dL 11/10/18 11/10/18 Range/Units 07:30 11:17 Chloride 111 H (98-107) mmol/L Carbon Dioxide 31 H (22-30) mmol/L BUN 39 H (9-20) mg/dL Glucose 106 H (74-99) mg/dL POC Glucose (mg/dL) 180 H (75-99) mg/dL Microbiology - Last 24 Hours (Table) 11/08/18 11:07 Blood Culture Gram Stain - Preliminary Blood 11/08/18 11:07 Blood Culture - Final Blood 11/08/18 16:40 Urine Culture - Final Urine,Voided Assessment and Plan Plan: -Encephalopathy patient has metabolic encephalopathy from severe dehydration senility of supraventricular tachycardia contributing to his fall as well as syncope area: Continue on half-normal saline because of hypochloremia and hyponatremia , improved serum creatinine continues to have hyponatremia and hypochloremia expected to improve, probably fluids can be stopped tomorrow Encephalopathy significantly improved, patient may need placement physical therapy and occupational therapy evaluation -Severe dehydration intravascular depletion leading to acute renal failure which is prerenal azotemia IV fluids as mentioned above -Hyperchloremia and hypovolemic hypernatremia will continue with IV fluids as mentioned above -Mildly elevated troponins due to acute renal failure patient denied any chest pain EKG showed nonspecific ST-T wave changes cardiology was consulted repeat troponins remained at the same level he did cardiology valid the patient patient is on beta melissa for possible supraventricular tachycardia -non-Specific elevation of amylase and lipase -Hypertension patient was started on angiotensin the Septra melissa dose of which can be increased if creatinine remains stable and discontinue amlodipine at the time -Type 2 diabetes mellitus elevated blood sugars continue with her lack his Lantus sliding scale insulin patient has uncontrolled blood sugars will hold off on oral hypoglycemic agents at this time -Possible moderate vascular dementia CODE STATUS discussed with the patient at length he cannot make in addition at this time as per the nursing staff son who visited him earlier wanted him to be full code.
[2018-11-10] MEDS ORDERED: VANCOMYCIN IV PER PHARMACY 1 EACH MISC MISCELLANE PRN (17:13)
[2018-11-10 17:20] LABS: Glucose,Whole Blood 238 mg/dL (75-99)
[2018-11-10] MEDS ORDERED: VANCOMYCIN 1,750 MG in SODIUM CHLORIDE 0.9% 500 ML 500 ML IVPB ONE (17:30)
[2018-11-10] MEDS: LOSARTAN 50 MG TAB PO SCH (17:39)
[2018-11-10 20:35] LABS: Glucose,Whole Blood 251 mg/dL (75-99)
[2018-11-10] MEDS: INSULIN DETEMIR 100 UNIT/ML 10 ML VIAL SQ SCH (20:43)
[2018-11-10] MEDS: ATORVASTATIN 10 MG TAB PO SCH (20:43)
[2018-11-11] MEDS: SODIUM CHLORIDE 0.45% 1,000 ML IV SCH ×2 (06:10→17:15)
[2018-11-11 07:11] LABS: Glucose,Whole Blood 112 mg/dL (75-99)
[2018-11-11] MEDS: INSULIN ASPART 100 UNIT/ML 1 ML 10 ML VIAL SQ SCH ×4 (07:12→23:10)
[2018-11-11] MEDS: HEPARIN SODIUM,PORCINE 5,000 UNIT/ML 1 ML VIAL SQ SCH ×2 (07:33→23:10)
[2018-11-11] MEDS: FAMOTIDINE 20 MG TAB PO SCH (07:33)
[2018-11-11] MEDS: LOSARTAN 50 MG TAB PO SCH (07:33)
[2018-11-11] MEDS: METOPROLOL SUCCINATE (ER) 50 MG TAB.ER.24H PO SCH (07:33)
[2018-11-11] MEDS: amLODIPine 5 MG TAB PO SCH (07:33)
[2018-11-11 08:39] LABS: Anion Gap 3 mmol/L; Blood Urea Nitrogen 24 mg/dL (9-20); Calcium 8.8 mg/dL (8.4-10.2); Carbon Dioxide 29 mmol/L (22-30); Chloride 110 mmol/L (98-107); Glucose 110 mg/dL (74-99); Potassium 3.7 mmol/L (3.5-5.1); Sodium 142 mmol/L (137-145)
[2018-11-11] MEDS ORDERED: VANCOMYCIN 1,500 MG in SODIUM CHLORIDE 0.9% 250 ML IVPB SCH (09:00)
[2018-11-11 11:51] LABS: Glucose,Whole Blood 203 mg/dL (75-99)
[2018-11-11 16:59] LABS: Glucose,Whole Blood 186 mg/dL (75-99)
[2018-11-11 20:35] LABS: Glucose,Whole Blood 195 mg/dL (75-99)
--- NOTE | 2018-11-11 20:37 | PN ---
PROGRESS NOTE DATE OF SERVICE: 11/11/2018 This 88-year-old gentleman who was admitted with metabolic encephalopathy secondary to dehydration, supraventricular tachycardia and multiple medical problems, has been closely monitored. The patient continues to be confused. The patient has been closely monitored. PAST MEDICAL HISTORY: Reviewed. REVIEW OF SYSTEMS: Could not be taken. The patient is confused. CURRENT MEDICATIONS: Reviewed and include: 1. Norvasc 5 mg p.o. b.i.d. 2. Lipitor 10 mg q.h.s. 3. Pepcid 20 mg b.i.d. 4. Heparin 5 subcu b.i.d. 5. NovoLog scale. 6. Levemir 18 units subcu daily. 7. Cozaar 50 mg p.o. daily. 8. Toprol XL. 9. Narcan. 10.Vancomycin IV. PHYSICAL EXAM: Patient is in conscious, confused. Pulse 61, blood pressure 159/58, respirations 16, temperature 97.8, pulse ox 98% on room air. HEENT: Conjunctivae normal. Oral mucosa moist. Neck is no jugular venous distention. No carotid bruit. No lymph node enlargement. CARDIOVASCULAR: S1, S2. RESPIRATORY: Breath sounds diminished in the bases. A few scattered rhonchi and crackles. ABDOMEN: Soft, nontender. LEGS: No edema. NERVOUS SYSTEM: Diffusely weak. LABS: Sodium 142, potassium 3.7. Accu-Cheks noted. Otherwise, hemoglobin 11.6. ASSESSMENT: 1. Change in mental status, metabolic encephalopathy, multifactorial secondary to dehydration. 2. Supraventricular tachycardia. 3. Fall and gait dysfunction. 4. Hyponatremia. 5. Hypochloremia. 6. Severe dehydration. 7. Elevated troponin secondary to acute renal failure. 8. Nonspecific elevation of amylase, lipase. 9. Hypertension. 10.Diabetes mellitus type 2. 11.Vascular dementia. 12.FULL CODE. 13.Diabetes type 2. RECOMMENDATION: In this 88-year-old gentleman who presented with multiple complex medical issues, will monitor the patient closely. Continue the current management and symptomatic treatment. The blood culture showed coag-negative staph only. I will stop the vancomycin and will repeat the labs. Otherwise, resume the home medications. The PT, OT evaluation, possible ECF rehab. Guarded prognosis because of multiple complex medical issues. Further recommendations to follow. MMODL / IJN: [id number] /
[2018-11-11] MEDS: ATORVASTATIN 10 MG TAB PO SCH (23:10)
[2018-11-11] MEDS: INSULIN DETEMIR 100 UNIT/ML 10 ML VIAL SQ SCH (23:11)
[2018-11-12] MEDS: SODIUM CHLORIDE 0.45% 1,000 ML IV SCH ×2 (02:00→17:27)
[2018-11-12] MEDS: LOSARTAN 50 MG TAB PO SCH (06:58)
[2018-11-12 07:16] LABS: Basophils % (A) 0 %; Eosinophils # (A) 0.3 k/uL (0-0.7); Eosinophils % (A) 3 %; HCT 37.2 % (39.0-53.0); Lymphocytes % (A) 12 %; MCH 29.3 pg (25.0-35.0); MCHC 32.3 g/dL (31.0-37.0); MCV 90.6 fL (80.0-100.0); Mean Platelet Volume 7.8; Monocytes # (A) 0.6 k/uL (0-1.0); Monocytes % (A) 7 %; Neutrophils % (A) 75 %; Platelet Count 287 k/uL (150-450); RDW 12.9 % (11.5-15.5)
[2018-11-12 07:23] LABS: Anion Gap 5 mmol/L; Blood Urea Nitrogen 17 mg/dL (9-20); Calcium 9.2 mg/dL (8.4-10.2); Carbon Dioxide 31 mmol/L (22-30); Chloride 105 mmol/L (98-107); Glucose 234 mg/dL (74-99); Potassium 4.1 mmol/L (3.5-5.1); Sodium 141 mmol/L (137-145)
[2018-11-12 07:30] LABS: Glucose,Whole Blood 257 mg/dL (75-99)
[2018-11-12] MEDS: MULTIVITAMINS, THERA 1 EACH TAB PO SCH (08:00)
[2018-11-12] MEDS: METOPROLOL SUCCINATE (ER) 50 MG TAB.ER.24H PO SCH (08:01)
[2018-11-12] MEDS: PANTOPRAZOLE 40 MG TABLET PO SCH (08:01)
[2018-11-12] MEDS: INSULIN ASPART 100 UNIT/ML 1 ML 10 ML VIAL SQ SCH ×4 (08:01→21:43)
[2018-11-12] MEDS: FOLIC ACID 1 MG TAB PO SCH (08:01)
[2018-11-12] MEDS: HEPARIN SODIUM,PORCINE 5,000 UNIT/ML 1 ML VIAL SQ SCH ×2 (08:01→21:43)
[2018-11-12] MEDS: THIAMINE 100 MG TAB PO SCH (08:04)
[2018-11-12] MEDS: amLODIPine 5 MG TAB PO SCH ×2 (08:04→21:43)
[2018-11-12 11:48] LABS: Glucose,Whole Blood 166 mg/dL (75-99)
[2018-11-12 17:08] LABS: Glucose,Whole Blood 135 mg/dL (75-99)
--- NOTE | 2018-11-12 18:21 | PN ---
PROGRESS NOTE DATE OF SERVICE: 11/12/2018 DATE OF SERVICE: This 88-year-old gentleman who was admitted with acute metabolic encephalopathy , is being closely monitored. Patient also had tachycardia. The patient also had a fall and gait dysfunction. The possible ECF rehab is being contemplated at this time. The lab showed hemoglobin is 12. CO2 is elevated at 31, glucose is being monitored. PAST MEDICAL HISTORY: Reviewed. REVIEW OF SYSTEMS: CARDIOVASCULAR: No angina. RESPIRATION: As mentioned earlier. GI: As mentioned earlier. : No dysuria. CENTRAL NERVOUS SYSTEM: As mentioned earlier. CURRENT MEDICATIONS ARE: Reviewed and include: 1. Norvasc 5 mg daily. 2. Lipitor 40 mg q.h.s. 3. Folic acid 1 mg p.o. 4. Heparin 5000 subcu b.i.d. 5. NovoLog scale. 6. Levemir units subcu q.h.s. 7. Cozaar. 8. Toprol-XL 50 mg. 9. Multivitamins one p.o. daily. 10.Narcan 0.2 q.2h p.r.n. 11.Protonix 40 mg daily. 12.Vitamin B1 100 mg daily. PHYSICAL EXAM: Patient is alert, oriented x2. Pulse 69, blood pressure 186/70, respiration 18 , temp 98.2, pulse ox 98% on 3 L. HEENT: Conjunctivae normal. Neck: No jugular venous distention. Respirations : Breath sounds diminished in the bases. A few scattered rhonchi and crackles. ABDOMEN: Soft, nontender. Legs are no edema. No swelling. Nervous system: No focal deficits. LABS: WBC 8, hemoglobin is 12, sodium 140, potassium 4.1. ASSESSMENT: 1. Change in mental status, acute metabolic encephalopathy, multifactorial secondary to dehydration. 2. Supraventricular tachycardia. 3. Fall and gait dysfunction. 4. Hyponatremia. 5. Hypochloremia. 6. Severe dehydration. 7. Elevated troponin secondary to acute renal failure. 8. Nonspecific elevation of amylase and lipase. 9. Hypertension. 10.Diabetes mellitus type 2. 11.Vascular dementia. 12.FULL CODE. RECOMMENDATIONS AND DISCUSSION: In this 88-year-old gentleman who presented with multiple complex medical issues. At this time, I recommend to continue the current medication, continue symptomatic treatment. Otherwise PT, OT evaluation. Continue the monitoring, continue with hydration. Continue with the rest of the medications. The patient is not on any antibiotic at this time. Monitor blood pressure closely. The patient is on Norvasc 5 daily. I would increase the dose to twice daily and continue to monitor. PT/OT evaluation. Social work consultation for Case Management to follow the patient closely and possible ECF rehab. Guarded prognosis. Further recommendations to follow. MMODL / IJN: [id number] / MTDD
[2018-11-12 20:35] LABS: Glucose,Whole Blood 192 mg/dL (75-99)
[2018-11-12] MEDS: INSULIN DETEMIR 100 UNIT/ML 10 ML VIAL SQ SCH (21:43)
[2018-11-12] MEDS: ATORVASTATIN 10 MG TAB PO SCH (21:43)
[2018-11-13 07:38] LABS: Glucose,Whole Blood 135 mg/dL (75-99)
[2018-11-13 08:37] LABS: Basophils % (A) 0 %; Eosinophils # (A) 0.3 k/uL (0-0.7); Eosinophils % (A) 3 %; HCT 35.9 % (39.0-53.0); HGB 11.7 gm/dL (13.0-17.5); Lymphocytes # (A) 1.3 k/uL (1.0-4.8); Lymphocytes % (A) 16 %; MCH 29.3 pg (25.0-35.0); MCHC 32.5 g/dL (31.0-37.0); MCV 90.2 fL (80.0-100.0); Mean Platelet Volume 7.5; Monocytes # (A) 0.6 k/uL (0-1.0); Monocytes % (A) 7 %; Neutrophils # (A) 5.8 k/uL (1.3-7.7); Neutrophils % (A) 71 %; Platelet Count 316 k/uL (150-450); RBC 3.98 m/uL (4.30-5.90); WBC 8.2 k/uL (3.8-10.6)
[2018-11-13] MEDS: LOSARTAN 50 MG TAB PO SCH (08:54)
[2018-11-13] MEDS: INSULIN ASPART 100 UNIT/ML 1 ML 10 ML VIAL SQ SCH ×3 (08:54→17:20)
[2018-11-13] MEDS: PANTOPRAZOLE 40 MG TABLET PO SCH (08:54)
[2018-11-13] MEDS: amLODIPine 5 MG TAB PO SCH (08:54)
[2018-11-13] MEDS: METOPROLOL SUCCINATE (ER) 50 MG TAB.ER.24H PO SCH (08:54)
[2018-11-13] MEDS: FOLIC ACID 1 MG TAB PO SCH (08:54)
[2018-11-13] MEDS: HEPARIN SODIUM,PORCINE 5,000 UNIT/ML 1 ML VIAL SQ SCH (08:55)
[2018-11-13 09:00] LABS: Calcium 9.3 mg/dL (8.4-10.2); Potassium 4.2 mmol/L (3.5-5.1)
[2018-11-13] MEDS: MULTIVITAMINS, THERA 1 EACH TAB PO SCH (11:21)
[2018-11-13] MEDS: SODIUM CHLORIDE 0.45% 1,000 ML IV SCH (11:22)
[2018-11-13] MEDS: THIAMINE 100 MG TAB PO SCH (11:22)
[2018-11-13 11:33] LABS: Glucose,Whole Blood 138 mg/dL (75-99)
--- NOTE | 2018-11-13 16:23 | P.DS ---
Providers Date of admission: 11/08/18 13:45 Expected date of discharge: 11/13/18 Attending physician: Nikolas Stark Consults: 11/08/18 17:41 Consult Physician Routine Consulting Provider: Jose Miguel De Luna Consult Reason/Comments: elevated troponins Do you want consulting provider notified?: Yes, Notify in am Primary care physician: Nikolas Singer Hospital Course: Final Diagnoses: -Change in mental status, acute metabolic encephalopathy, multifactorial secondary to dehydration. -SVT -Severe dehydration -Hyponatremia -Hypochloremia -Mildly elevated troponins due to acute renal failure. -non-Specific elevation of amylase and lipase -Hypertension -Type 2 diabetes mellitus -Vascular dementia Hospital course:82-year-old gentleman was admitted after he was found on the floor and altered mental status secondary to severe intravascular volume depletion, dehydration,SVT. Maintained on IV fluid hydration. Evaluated by cardiology, meds adjusted. Significant clinical improvement. Cleared by cardiology for discharge. Patient is being discharged to subacute rehab in a stable condition with guarded prognosis. EXAMINATION: GENERAL: The patient is alert and oriented x3, not in any acute distress. CARDIOVASCULAR: S1 and S2 present. No murmurs, rubs, or gallops. PULMONARY: Chest is clear to auscultation, no wheezing or crackles. ABDOMEN: Soft, nontender, nondistended, normoactive bowel sounds. NEUROLOGICAL: Gross neurological examination did not reveal any focal deficits. The impression and plan of care has been dictated as directed. : I performed a history and examination of this patient, discussed the same with the dictator. I agree with the dictator's note ,documented as a scribe. Any additional findings or plans will be noted. Time taken: 35 minutes Patient Condition at Discharge: Stable Plan - Discharge Summary Discharge Rx Participant: No New Discharge Prescriptions: New amLODIPine [Norvasc] 5 mg PO BID tab Folic Acid 1 mg PO DAILY@1200 tab Losartan [Cozaar] 50 mg PO DAILY tab Metoprolol Succinate (ER) [Toprol XL] 50 mg PO DAILY tab.er.24h Multivitamins, Thera [Multivitamin (formulary)] 1 each PO DAILY@1200 tab Pantoprazole [Protonix] 40 mg PO AC-BRKFST tablet. Thiamine [Vitamin B-1] 100 mg PO DAILY@1200 tab INSULIN LISPRO (HumaLOG) [humaLOG] 0 unit SQ ACHS #1 vial Continue Simvastatin [Zocor] 20 mg PO HS Insulin Detemir [Levemir Flextouch] 8 units SQ HS Discontinued Quinapril HCl 10 mg PO DAILY Glimepiride [Amaryl] 2 mg PO BID Discharge Medication List Insulin Detemir [Levemir Flextouch] 8 units SQ HS 06/08/17 [History] Simvastatin [Zocor] 20 mg PO HS 06/08/17 [History] Folic Acid 1 mg PO DAILY@1200 tab 11/13/18 [Rx] INSULIN LISPRO (HumaLOG) [humaLOG] 0 unit SQ ACHS #1 vial 11/13/18 [Rx] Losartan [Cozaar] 50 mg PO DAILY tab 11/13/18 [Rx] Metoprolol Succinate (ER) [Toprol XL] 50 mg PO DAILY tab.er.24h 11/13/18 [Rx] Multivitamins, Thera [Multivitamin (formulary)] 1 each PO DAILY@1200 tab [Rx] Pantoprazole [Protonix] 40 mg PO AC-BRKFST tablet. 11/13/18 [Rx] Thiamine [Vitamin B-1] 100 mg PO DAILY@1200 tab 11/13/18 [Rx] amLODIPine [Norvasc] 5 mg PO BID tab 11/13/18 [Rx] Follow up Appointment(s)/Referral(s): Nikolas Singer MD [Primary Care Provider] - 3 Days Activity/Diet/Wound Care/Special Instructions: Confirm cardiology Appointment prior to discharge Diet: Cardiac Activity: as tolerated CBC, BMP in 3 days
[2018-11-13 16:35] VITALS: BP 139/65; PULSE 63; RESP 16; TEMP 98
[2018-11-13 17:16] LABS: Glucose,Whole Blood 255 mg/dL (75-99)
== END 2018-11-13 19:22 | DRG 682 ==
LOC: SUPCPDRO 10:42 → EC 10:42 → 3SCARD 13:45 → 4MS4W 11-09 20:26
PROVIDERS: ADMIT Family Medicine; ATTEND Family Medicine
DX: N17.9 Acute kidney failure, unspecified (principal); G93.41 Metabolic encephalopathy; E87.0 Hyperosmolality and hypernatremia; F05 Delirium due to known physiological condition; I47.1 Supraventricular tachycardia; M62.82 Rhabdomyolysis; D70.9 Neutropenia, unspecified; E11.65 Type 2 diabetes mellitus with hyperglycemia; E78.5 Hyperlipidemia, unspecified; E86.0 Dehydration; E86.1 Hypovolemia; E87.8 Other disorders of electrolyte and fluid balance, not elsewhere classified; F01.50 Vascular dementia, unspecified severity, without behavioral disturbance, psychotic disturbance, mood disturbance, and anxiety; F17.210 Nicotine dependence, cigarettes, uncomplicated; G25.3 Myoclonus; I10 Essential (primary) hypertension; W18.30XA Fall on same level, unspecified, initial encounter; Z79.4 Long term (current) use of insulin; R74.8 Abnormal levels of other serum enzymes; Z79.899 Other long term (current) drug therapy; Z60.2 Problems related to living alone; S80.812A Abrasion, left lower leg, initial encounter; S20.412A Abrasion of left back wall of thorax, initial encounter; S90.414A Abrasion, right lesser toe(s), initial encounter
CPT/HCPCS: 36415; 70450; 71045; 72170; 80048; 80053; 80306; 80320; 81003; 82140; 82150; 82550; 82553; 83605; 83735; 84443; 84484; 85025; 85027; 85610; 85730; 87040; 87077; 87086; 87150; 87186; 93005; 94760; 96360; 96361; 99291